=== PATIENT | female | born 1965 | race Caucasian/White ===

== ENCOUNTER 2018-08-01 20:17 | Emergency (ER) | payer BC ==
[2018-08-01] MEDS ORDERED: MORPHINE SULFATE INJ 10 MG/ML VIAL IM ONE (20:45)
--- NOTE | 2018-08-01 20:48 | ED.PDOC ---
History of Present Illness - General Chief Complaint: Lower Extremity Injury Stated Complaint: right lower leg injury, fell off ladder Time Seen by Provider: 08/01/18 20:40 Source: patient Exam Limitations: no limitations - History of Present Illness Initial Comments: PT C/O R LOWER LEG PAIN. WAS 3 RUNGS UP ON A LADDER WHEN SHE SLIPPED. FELL APPROX 3 FEET. C/O PAIN TO RLE. DOES NOT KNOW IF SHE STRUCK HER HEAD OR NOT BUT NO LOC AND DOES NOT HAVE HEAD OR NECK PAIN Improving Factors: immobilization Worsening Factors: movement Allergies/Adverse Reactions: Allergies NO KNOWN ALLERGY Allergy (Verified 08/01/18 20:31) Home Medications: Ambulatory Orders Levothyroxine Sodium [Synthroid] 200 mcg PO DAILY 08/01/18 Lisinopril 20 mg PO DAILY 08/01/18 Review of Systems - Review of Systems Constitutional: States: no symptoms reported EENTM: States: no symptoms reported Respiratory: Denies: short of breath Cardiology: Denies: chest pain, palpitations Gastrointestinal/Abdominal: Denies: nausea, vomiting Musculoskeletal: Denies: back pain, neck pain Skin: States: other - SWELLING, NO ECCHYMOSIS Neurological: Denies: headache, paresthesia, weakness Endocrine: States: no symptoms reported Hematologic/Lymphatic: States: no symptoms reported Past Medical History (General) - Patient Medical History Hx Seizures: No Hx Stroke: No Hx Dementia: No Hx Asthma: No Hx of COPD: No Hx Cardiac Disorders: No Hx Pacemaker: No Hx Hypertension: Yes Hx Thyroid Disease: Yes Hx Diabetes: No Hx Gastroesophageal Reflux: No Hx Renal Disease: No Hx Cancer: No Hx of HIV: No Hx Hepatitis C: No Hx MRSA: No Surgical History: Hysterectomy - Vaccination History Hx Tetanus, Diphtheria Vaccination: No Hx Influenza Vaccination: No Family Medical History - Family History Mother Family History: Unknown Physical Exam - Physical Exam General Appearance: Alert, No apparent distress, Other - UNCOMFORTABLE. Eyes, Ears, Nose, Throat: PERRL/EOMI, normal ENT inspection, other - NC/AT Neck: non-tender, full range of motion, supple Cardiovascular/Respiratory: regular rate, rhythm, no M/R/G, normal breath sounds , no respiratory distress Gastrointestinal/Abdominal: non-tender, no organomegaly Back: normal inspection, no CVA tenderness, no vertebral tenderness Thigh/Hip: non-tender, normal ROM Leg: normal inspection, no evidence of injury, normal ROM Knee: other - TTP, NO EFFUSION, NO EVIDENCE OF TRAUMA. TTP AND SWELLING PROXIMAL TIB/FIB, NVI Ankle: normal inspection, non-tender, no evidence of injury Foot: normal inspection, non-tender, no evidence of injury Neuro/Tendon: normal sensation, normal motor functions Mental Status: alert, oriented x 3 Skin: normal color Progress - Progress Progress: 08/01/18 21:56 D/W DR PHAM AT [facility] PT IN TRANSFER - EKG/XRAY/CT XRAY: FEMUR/TIB-FIB: COMMINUTED PROXIMAL TIBIAL FX EXTENDS TO [place] Procedures - Splinting Right Leg Pre-Made Type: knee immobilizer Pre-Proc Neuro Vasc Exam: normal Post-Proc Neuro Vasc Exam: normal Departure - Departure Clinical Impression: Tibial plateau fracture, right Qualifiers: Encounter type: initial encounter Fracture type: closed Qualified Code(s): S82.141A - Displaced bicondylar fracture of right tibia, initial encounter for closed fracture Time of Disposition: 21:57 Disposition: Transfer to Hospital Condition: Fair Departure Forms: ED Discharge - Pt. Copy, Patient Portal Self Enrollment Instructions: DI for Leg Pain Home Medications: Ambulatory Orders Levothyroxine Sodium [Synthroid] 200 mcg PO DAILY 08/01/18 Lisinopril 20 mg PO DAILY 08/01/18
--- NOTE | 2018-08-01 21:40 | RAD ---
EXAM DESCRIPTION: Femur,Right CLINICAL HISTORY: 53 years Female, fall with pain and swelling COMPARISON: None. FINDINGS: The femur is intact. No dislocation. Badly comminuted proximal tibia fracture. IMPRESSION: No acute fracture of the femur. Electronically signed by: Juaquin Woodard DO 08/01/2018 9:39 PM CDT
--- NOTE | 2018-08-01 21:42 | RAD ---
EXAM DESCRIPTION: Tibia/Fibula,Right CLINICAL HISTORY: 53 years Female, fall with pain and swelling COMPARISON: None. FINDINGS: Badly comminuted fracture of the proximal metaphysis of the tibia which extends into the tibial spines and lateral plateau IMPRESSION: Comminuted intra-articular fracture of the proximal tibia. Electronically signed by: Juaquin Woodard DO 08/01/2018 9:40 PM CDT
[2018-08-01 22:18] VITALS: BP 151/77; TEMP 98.9; O2SAT 97
== END 2018-08-01 22:50 | disposition short-term general hospital (02) ==
LOC: ER 20:17
DX: S82.141A Displaced bicondylar fracture of right tibia, initial encounter for closed fracture (principal); I10 Essential (primary) hypertension; E07.9 Disorder of thyroid, unspecified; W11.XXXA Fall on and from ladder, initial encounter; Y92.9 Unspecified place or not applicable
CPT/HCPCS: 73551; 73590; J2270